=== PATIENT | female | born 1935 | race Caucasian/White ===

== ENCOUNTER 2016-10-09 17:14 | Emergency (ER) | payer MEDICARE ==
[~2016-10-09 17:14] MED LIST: ALBU2.5I INH; ASPI81TA82 PO; ATRO17AE INH; AZIT250T74 PO; BENZ100 PO; CALA240T PO; CALCCHW9 PO; COEN100T PO; FLUTI220I INH; FOSA70TA PO; METHI10 PO; MONT10TA2 PO; MULT1TAB46 PO; OMEG100037 PO; PRAV10 PO; PRED20 PO; PROM6.257 PO; PROP20TA24 PO; VITA20002 PO
[2016-10-09 17:17] VITALS: BP 174/70; PULSE 62; RESP 20; TEMP 97.7; O2SAT 98
[2016-10-09] MEDS ORDERED: TAPA10TA2 PO (19:01)
[2016-10-09] MEDS ORDERED: VERA1TAB17 PO (19:01)
[2016-10-09] MEDS ORDERED: MULT-135 PO (19:01)
[2016-10-09] MEDS ORDERED: IPRASOL INH (19:01)
[2016-10-09] MEDS ORDERED: PROP20TA3 PO (19:01)
[2016-10-09] MEDS ORDERED: OMEG100010 PO (19:01)
[2016-10-09] MEDS ORDERED: MONT10TA2 PO (19:01)
[2016-10-09] MEDS ORDERED: PRAV10TA PO (19:01)
[2016-10-09] MEDS ORDERED: METH5 PO (19:01)
[2016-10-09] MEDS ORDERED: VENTAER INH (19:01)
[2016-10-09] MEDS ORDERED: FLUT1SPR5 EACH NARE (19:01)
[2016-10-09] MEDS ORDERED: BENZ100 PO (19:06)
[2016-10-09] MEDS ORDERED: ASPI81TA81 PO (19:06)
[2016-10-09] MEDS ORDERED: FLUTI220I INH (19:06)
[2016-10-09] MEDS ORDERED: COQ-100C2 PO (19:06)
[2016-10-09] MEDS ORDERED: VITA200012 PO (19:06)
[2016-10-09] MEDS ORDERED: ONDANSETRON HCL 4 MG/2 ML VIAL IV ONE (19:45)
[2016-10-09] MEDS ORDERED: MORPHINE SULFATE 4 MG/ML INJ IV PUSH ONE (19:45)
[2016-10-09 20:12] LABS: AUTOMATED NEUTROPHIL # 4.5 TH/MM3 (1.8-7.7); BASOPHIL # 0.1 TH/MM3 (0-0.2); BASOPHIL % 1.1 % (0.0-2.0); EOSINOPHIL # 0.2 TH/MM3 (0-0.4); HEMATOCRIT 37.1 % (35.0-46.0); HEMO FLAGS DIFF FINAL; LYMPHOCYTE # 2.5 TH/MM3 (1.0-4.8); MEAN CORPUSCULAR HEMOGLOBIN 27.4 PG (27.0-34.0); MEAN CORPUSCULAR HGB CONC 33.8 % (32.0-36.0); MONO % 9.8 % (0.0-8.0); NEUT % 55.1 % (16.0-70.0); PLATELET COUNT 425 TH/MM3 (150-450); RED BLOOD COUNT 4.57 MIL/MM3 (4.00-5.30); RED CELL DISTRIBUTION WIDTH 15.1 % (11.6-17.2); WHITE BLOOD COUNT 8.2 TH/MM3 (4.0-11.0)
[2016-10-09 20:25] LABS: ANION GAP 6 MEQ/L (5-15); AST (GOT) 18 U/L (15-37); BICARBONATE 27.7 MEQ/L (21.0-32.0); BLOOD UREA NITROGEN 18 MG/DL (7-18); CHLORIDE 106 MEQ/L (98-107); GLOMERULAR FILTRATION RATE 90 ML/MIN (>89); SODIUM (NA) 140 MEQ/L (136-145)
[2016-10-09 20:36] LABS: ALKALINE PHOSPHATASE 98 U/L (45-117); ALT (GPT) 24 U/L (10-53); FREE T4 1.02 NG/DL (0.76-1.46); TOTAL BILIRUBIN ADULT 0.2 MG/DL (0.2-1.0)
[2016-10-09] MEDS ORDERED: PROPARACAINE HCL 0.5% OPHT SOLN 15 ML BTL EACH EYE ONE (21:00)
--- NOTE | 2016-10-09 21:05 | PD ---
HPI Chief Complaint: Eye Problems/Injury Time Seen by Provider: 19:04 Travel History International Travel<30 days: No Contact w/Intl Traveler<30days: No Traveled to known affect area: No History of Present Illness HPI This 80-year-old woman who presents to the emergency department complaining of eye pain. She reports that she is a history of Graves' disease. She's been under good control for the past 10 years or so. About a month or so ago they switched from them is all from 10 mg daily to 10 mg alternating with 5 mg every other day. About a month ago she started getting some pain and fullness and swelling in the right eye. She went to a doctor told her she probably had periorbital cellulitis and sinusitis. She was put on antibiotics and steroids. She had some minimal improvement but wasn't really feeling all that much better. A couple days ago she went to a [facility] urgent care. She is having ongoing pain and swelling in the eye. They told her that she had ongoing symptoms but were worried that it may be something else. They did an MRI 2 days ago. Today she got a call with results that she had swelling of the muscles behind the eye and of the gland next to the eye. She was instructed to follow-up immediately with her eye doctor and her accounts payable or receivable clerk. Her accounts payable or receivable clerk does not have an after-hours message service, and her eye doctor told her to come to the emergency room here. She states she's been having some visual changes, ongoing pain in the right eye, and feels generally poorly. She saw her eye doctor about one to 2 weeks ago and reportedly had an extensive exam that was normal. She's not had similar problems before. She's had a little bit of double vision since she's had Graves ' disease for the past 10 years. She's not had any other ophthalmoplegia. History Past Medical History Narrative Medical Graves' disease COPD Hypertension SVT CHF Tetanus Vaccination: Unknown Influenza Vaccination: Yes Social History Alcohol Use: No Tobacco Use: No Allergies-Medications (Allergen,Severity, Reaction): Coded Allergies: Levaquin (Verified Allergy, Severe, 10/09/16) PASSED OUT Darvon (Verified Allergy, Intermediate, Swelling, 04/14/16) Penicillin (Verified Allergy, Mild, Swelling, 04/14/16) Diflucan (Verified Allergy, Unknown, 04/14/16) Vancomycin (Verified Allergy, Unknown, 04/14/16) Uncoded Allergies: TEICOPLANIN (Allergy, Unknown, 04/13/16) Reported Meds & Prescriptions Reported Meds & Active Scripts Active Reported Aspir-81 (Aspirin) 81 Mg Tabdr 81 Mg PO DAILY Tessalon Perles (Benzonatate) 100 Mg Cap 200 Mg PO TID PRN Vitamin D3 (Cholecalciferol) 2,000 Unit Tab 2,000 Units PO DAILY Coq-10 (Coenzyme Q10 (Ubidecarenone)) 100 Mg Cap 100 Mg PO DAILY Flovent Hfa 12 GM Inh (Fluticasone Propionate) 220 Mcg/Act Inh 2 Puff INH BID Use daily at the same time. Tapazole (Methimazole) 5 Mg Tab 5 Mg PO EVERY OTHER DAY Tapazole (Methimazole) 10 Mg Tab 10 Mg PO EVERY OTHER DAY Singulair (Montelukast Sodium) 10 Mg Tab 10 Mg PO HS Multi Vitamin (Multiple Vitamin) 1 Tab Tab 1 Tab PO DAILY [place] 3 1000 mg ([place]-3 Fatty Acids) 1 Cap Cap 1,000 Mg PO DAILY Pravastatin 10 Mg Tab 10 Mg PO AC DINNER Propranolol (Propranolol HCl) 20 Mg Tab 20 Mg PO TID Verapamil ER 24 HR (Verapamil HCl) 240 Mg Tab 240 Mg PO DAILY Ventolin Hfa 18 GM Inh (Albuterol Sulfate) 90 Mcg/Act Aer 2 Puff INH Q6H PRN Duoneb (Ipratropium-Albuterol Neb) 0.5-2.5 Mg/3 Ml Neb 1 Nebule INH Q6HR NEB PRN Flonase Nasal [place] (Fluticasone Nasal [place]) 50 Mcg/Act [place] 1 [place] EACH NARE BID Review of Systems Except as stated in HPI: all other systems reviewed are Neg Physical Exam Narrative GENERAL: Well-appearing 80-year-old woman, no acute distress. SKIN: Focused skin assessment warm/dry. HEAD: Atraumatic. Normocephalic. EYES: Both eyes are little bit injected. The right eye is more injected. There is very mild proptosis. There is no obvious disconjugate gaze. EOMs are full. She has no photophobia. Intraocular pressures were measured and were 22 on the right, 13 on the left. Visual acuity was measured and was 20/40 on the right, 20/100 on the left with glasses. ENT: No nasal bleeding or discharge. Mucous membranes pink and moist. NECK: Trachea midline. No JVD. CARDIOVASCULAR: Regular rate and rhythm. No murmur appreciated. RESPIRATORY: No accessory muscle use. Clear to auscultation. Breath sounds equal bilaterally. GASTROINTESTINAL: Abdomen soft, non-tender, nondistended. Hepatic and splenic margins not palpable. MUSCULOSKELETAL: No obvious deformities. No clubbing. No cyanosis. No edema. NEUROLOGICAL: Awake and alert. No obvious cranial nerve deficits. Motor grossly within normal limits. Normal speech. PSYCHIATRIC: Appropriate mood and affect; insight and judgment normal. Data Data Last Documented VS Vital Signs Date Time Temp Pulse Resp B/P Pulse Ox O2 Delivery O2 Flow Rate FiO2 10/09/16 21:58 16 10/09/16 18:22 63 10/09/16 17:17 97.7 174/70 98 Room Air Orders Complete Blood Count With Diff (10/09/16 19:42) Comprehensive Metabolic Panel (10/09/16 19:42) [place] Sedimentation Rate (10/09/16 19:42) C-Reactive Protein (Crp) (10/09/16 19:42) Thyroid Stimulating Hormone (10/09/16 19:42) Total T3 (10/09/16 19:42) Free Thyroxine (T4) (10/09/16 19:42) Iv Access Insert/Monitor (10/09/16 19:42) Morphine Inj (Morphine Inj) (10/09/16 19:45) Ondansetron Inj (Zofran Inj) (10/09/16 19:45) Proparacaine 0.5% Opth Soln (Alcaine 0.5 (10/09/16 21:00) Dexamethasone Inj (Decadron Inj) (10/09/16 22:45) Labs Laboratory Tests Test 10/09/16 19:45 White Blood Count 8.2 TH/MM3 Red Blood Count 4.57 MIL/MM3 Hemoglobin 12.5 GM/DL Hematocrit 37.1 % Mean Corpuscular Volume 81.0 FL Mean Corpuscular Hemoglobin 27.4 PG Mean Corpuscular Hemoglobin 33.8 % Concent Red Cell Distribution Width 15.1 % Platelet Count 425 TH/MM3 Mean Platelet Volume 8.6 FL Neutrophils (%) (Auto) 55.1 % Lymphocytes (%) (Auto) 31.0 % Monocytes (%) (Auto) 9.8 % Eosinophils (%) (Auto) 3.0 % Basophils (%) (Auto) 1.1 % Neutrophils # (Auto) 4.5 TH/MM3 Lymphocytes # (Auto) 2.5 TH/MM3 Monocytes # (Auto) 0.8 TH/MM3 Eosinophils # (Auto) 0.2 TH/MM3 Basophils # (Auto) 0.1 TH/MM3 CBC Comment DIFF FINAL Differential Comment Erythrocyte Sedimentation Rate 24 mm/hr Sodium Level 140 MEQ/L Potassium Level 4.0 MEQ/L Chloride Level 106 MEQ/L Carbon Dioxide Level 27.7 MEQ/L Anion Gap 6 MEQ/L Blood Urea Nitrogen 18 MG/DL Creatinine 0.64 MG/DL Estimat Glomerular Filtration 90 ML/MIN Rate Random Glucose 96 MG/DL Calcium Level 9.1 MG/DL Total Bilirubin 0.2 MG/DL Aspartate Amino Transf 18 U/L (AST/SGOT) Alanine Aminotransferase 24 U/L (ALT/SGPT) Alkaline Phosphatase 98 U/L C-Reactive Protein LESS THAN 0.29 MG/DL Total Protein 7.1 GM/DL Albumin 3.8 GM/DL Free Thyroxine 1.02 NG/DL Total Triiodothyronine 138 NG/DL Thyroid Stimulating Hormone 1.480 uIU/ML [address] [place] [address] Medical Decision Making Medical Screen Exam Complete: Yes Emergency Medical Condition: Yes Interpretation(s) Reviewed MRI from [facility]: Limited examination secondary to patient motion artifact. Bilateral enlargement and enhancement of the extraocular muscles as described above. There also appears to be some asymmetric enhancement of the right lacrimal gland. There appears to be tendinous involvement on the right side but not significantly on the left side. Differential diagnosis includes orbital pseudotumor in thyroid ophthalmopathy. Bilateral orbital proptosis is demonstrated. No significant intracranial abnormality is demonstrated. Differential Diagnosis Orbital pseudotumor, thyroid ophthalmopathy, infection Narrative Course Medical decision-making new 80-year-old presents emergency Department with a month's worth of intermittent right sided eye pain and pressure. She responded to steroids in the past when she was treated for orbital cellulitis. Her thyroid studies are normal. I spoke with Dr. Oneal, the patient's hand tier. We'll give her a dose of IM steroids here, then start her on 80 mg of prednisone daily. He'll follow up with her office early next week. Diagnosis Primary Impression: Orbital pseudotumor Additional Instructions: Take prednisone as prescribed. Follow-up with your hand tier in the next 2-3 days. Return to the emergency department for any new or worsening symptoms. Med/Other Pt SpecificInfo: Prescription(s) given Scripts Prednisone (Deltasone)20 Mg Tab40 Mg PO BID 7 Days Prov:Keith Awan MD 10/09/16 Disposition: 01 DISCHARGE HOME Condition: Stable Keith Awan MD Oct 09, 2016 21:05
[2016-10-09 21:58] VITALS: RESP 16
[2016-10-09] MEDS ORDERED: DEXAMETHASONE SOD PHOS 4 MG/ML VIAL IM ONE (22:45)
[2016-10-09] MEDS ORDERED: PRED-503 PO (22:52)
== END 2016-10-09 22:59 | disposition home or self-care (01) ==
LOC: NEPC 17:14
DX: H05.111 Granuloma of right orbit (principal); E05.00 Thyrotoxicosis with diffuse goiter without thyrotoxic crisis or storm
CPT/HCPCS: 80053; 84439; 84443; 84480; 85025; 85652; 86140; 96372; 96374; 96375; 99283; J1100; J2270; J2405